=== PATIENT | male | born 1995 | race Caucasian/White ===

== ENCOUNTER 2018-08-25 09:50 | Emergency (ER) | payer OTHER ==
[~2018-08-25] VITALS: Ht 188 cm; Wt 119.0 kg
[2018-08-25 09:53] VITALS: BP 154/75
[2018-08-25] MEDS ORDERED: LIDOcaine 1% 30ml preserv. free vial IJ ONE (10:20)
[2018-08-25] MEDS ORDERED: bacitracin 15gm ointment TP ONE (10:20)
[2018-08-25] MEDS ORDERED: TETanus/Pertussis (Acell)/Diphther VAC/PF (Tdap-Adult) 0.5ml syringe IM ONE (10:20)
== END 2018-08-25 10:50 | disposition home or self-care (01) ==
LOC: ER 09:51
DX: S61.210A Laceration without foreign body of right index finger without damage to nail, initial encounter (principal); W26.8XXA Contact with other sharp object(s), not elsewhere classified, initial encounter; Y93.89 Activity, other specified; Y92.89 Other specified places as the place of occurrence of the external cause; Y99.8 Other external cause status
CPT/HCPCS: 12001; 99283